=== PATIENT | male | born 1995 | race Two or more races ===

== ENCOUNTER 2020-12-04 23:10 | Emergency (ER) | payer OTHER ==
[~2020-12-04] VITALS: Ht 165.1 cm; Wt 63.5 kg
[2020-12-04 23:19] VITALS: BP 139/70
[2020-12-04] MEDS ORDERED: ONDANSETRON 4 MG TAB.RAPDIS ONE (23:41)
[2020-12-04] MEDS: ONDANSETRON 4 MG TAB.RAPDIS PO ONE (23:43)
--- NOTE | 2020-12-04 23:50 | NUR ---
Patient discharged to home in stable condition. Written and verbal after care instructions given. Patient verbalizes understanding of instruction.
== END 2020-12-04 23:50 | disposition home or self-care (01) ==
LOC: ER 23:17
DX: R07.89 Other chest pain (principal); R11.0 Nausea; J45.909 Unspecified asthma, uncomplicated
CPT/HCPCS: 93005; 99283; Q0162